=== PATIENT | female | born 1970 | race Caucasian/White ===

== ENCOUNTER → 2017-10-15 | Outpatient (CLI) | payer BC | LOC: FIMAGING 07:35 | PROVIDERS: ATTEND Radiology Diagnostic Radiology | DX: I83.811 Varicose veins of right lower extremity with pain (principal); I87.2 Venous insufficiency (chronic) (peripheral) ==

== ENCOUNTER → 2017-12-04 | Day surgery (SDC) | payer BC ==
[~2017-12-04] MED LIST: LIDO/EPI 1% **for epidural** 30 ML SDV ONE; LIDOCAINE 1% 300 MG/30 ML SDV ONE; SODIUM TETRADECYL SULFATE 3% 2 ML VIAL IV ONE
== END | disposition home or self-care (01) ==
LOC: FIMAGING 12:43
PROVIDERS: ATTEND Radiology Diagnostic Radiology
PROC: 065P3ZZ Destruction of Right Saphenous Vein, Percutaneous Approach (ICD-10-PCS; principal; 2017-12-04)
PROC: 065Y3ZZ Destruction of Lower Vein, Percutaneous Approach (ICD-10-PCS; principal; 2017-12-04)
PROC: 3E033TZ Introduction of Destructive Agent into Peripheral Vein, Percutaneous Approach (ICD-10-PCS; principal; 2017-12-04)
DX: I83.811 Varicose veins of right lower extremity with pain (principal)
CPT/HCPCS: 36471; 36478; C1769